=== PATIENT | female | born 1945 | race Native Hawaiian/Other Pacific Islander ===

== ENCOUNTER 2016-09-05 10:45 | Day surgery (SDC) | payer OTHER | END 2016-09-05 13:05 | disposition home or self-care (01) | LOC: OR 10:45 | PROC: 08RJ3JZ Replacement of Right Lens with Synthetic Substitute, Percutaneous Approach (ICD-10-PCS; principal; 2016-09-05) | DX: H25.811 Combined forms of age-related cataract, right eye (principal) | CPT/HCPCS: 66984; J0171; V2632 ==

== ENCOUNTER 2016-10-17 07:50 | Day surgery (SDC) | payer OTHER | END 2016-10-17 09:35 | disposition home or self-care (01) | LOC: OR 07:50 | DX: H25.812 Combined forms of age-related cataract, left eye (principal); Z53.8 Procedure and treatment not carried out for other reasons | CPT/HCPCS: J0171 ==

== ENCOUNTER 2016-10-24 07:49 | Day surgery (SDC) | payer OTHER | END 2016-10-24 10:56 | disposition home or self-care (01) | LOC: OR 07:49 | PROC: 08RK3JZ Replacement of Left Lens with Synthetic Substitute, Percutaneous Approach (ICD-10-PCS; principal; 2016-10-24) | DX: H25.812 Combined forms of age-related cataract, left eye (principal) | CPT/HCPCS: 66984 ==